=== PATIENT | female | born 1980 | race Caucasian/White ===

== ENCOUNTER 2025-04-06 08:28 | Outpatient (CLI) | payer OTHER | END 2025-04-06 08:29 | disposition home or self-care (01) | LOC: CSHMAMMO 08:28 | PROVIDERS: ATTEND Family Medicine | DX: R92.8 Other abnormal and inconclusive findings on diagnostic imaging of breast (principal); N64.89 Other specified disorders of breast | CPT/HCPCS: G0279 ==